=== PATIENT | male | born 1990 | race Caucasian/White ===

== ENCOUNTER 2017-01-09 07:51 | Emergency (ER) | payer SELFPAY ==
--- NOTE | 2017-01-09 08:26 | ED Physician Documentation ---
General Adult - HISTORIAN Historian: patient - HPI Stated Complaint: Deferred Chief Complaint: General Adult Additional Information: depressed w/suicide ideation. traveling fr [place] TO [place] w/2 friends. they either abandoned or got lost from him. karyn adding to his depression. he has not attempted any self harm measure has been in neuro psyche lpreviously. on no meds at this time. Onset: days ago (3-4) Timing: still present, worse Severity: moderate - ROS CONST: no problems. denies: fever, sweating, recent illness, weakness, weight loss EYES/ENT: denies: problems with vision CVS/RESP: none. denies: chest pain, shortness of breath GI/: none MS/SKIN/LYMPH: none. denies: neck pain, joint pain, leg swelling NEURO/PSYCH: depression. denies: headache, fainting, dizziness, difficulty with speech - PAST HX Past History: other (prev depression otherwise [facility]) Other History: none Surgeries/Procedures: other (tib fib) Allergies/Adverse Reactions: Allergies Allergy/AdvReac Type Severity Reaction Status Date / Time No Known Allergies Allergy Unverified 01/09/17 08:10 Home Medications: Ambulatory Orders Medication Instructions Recorded NK [NK] 01/09/17 - SOCIAL HX Smoking History: cigarettes Alcohol Use: none Drug Use: none - FAMILY HX Family History: No - VITAL SIGNS Vital Signs: Vital Signs Temp Pulse Resp BP Pulse Ox 98.1 F 88 16 145/91 99 01/09/17 07:55 01/09/17 07:55 01/09/17 07:55 01/09/17 07:55 01/09/17 07:55 - REVIEWED ASSESSMENTS Nursing Assessment Reviewed: Yes Vitals Reviewed: Yes ED Results Lab/Radiology - Orders Orders: ED Orders Category Date Time Status ACETAMINOPHEN LEVEL Stat Lab 01/09/17 08:10 Received CBC/PLATELET/DIFF Routine Lab 01/09/17 08:10 Received CMP Routine Lab 01/09/17 08:10 Received DRUG SCREEN URINE MEDICAL ONLY Routine Lab 01/09/17 08:10 Received ETHANOL MEDICAL USE ONLY Stat Lab 01/09/17 08:10 Received URINALYSIS Routine Lab 01/09/17 08:10 Received General Adult Physical Exam - PHYSICAL EXAM GENERAL APPEARANCE: mild distress EENT: eye inspection normal NECK: normal inspection, thyroid normal, supple RESPIRATORY: no resp distress, chest non-tender, breath sounds normal CVS: reg rate & rhythm ABDOMEN: soft, non-tender BACK: normal inspection SKIN: warm/dry, normal color. No: cyanosis, diaphoresis, jaundice EXTREMITIES: non-tender, normal range of motion, no evidence of injury NEURO: oriented X3. No: mood/affect nml (depressed deameanor) Discharge Clincal Impression: depression, substance abuse Home Medications: Ambulatory Orders NK [NK] 01/09/17 Comments: pt reports no longer suicidal - just want a place to stay. rec go to police for possible placement. we dko not have social services analyst at this time. Condition: Good Disposition: 01 HOME, SELF-CARE Decision to Admit: NO Decision Time: 10:03
[2017-01-09 08:34] LABS: BASOPHILS % 0.7 (0.0-1.5); EOSINOPHILS % 2.8 % (0.0-6.8); MEAN CORPUSCULAR HEMOGLOBIN 29.4 pg (28.0-34.0); MEAN CORPUSCULAR VOLUME 84.4 fl (80.0-100.0); MONOCYTES % 5.3 % (0.0-11.0); NEUTROPHILS # 6.5 # k/uL (1.4-7.7)
[2017-01-09 08:35] LABS: APPEARANCE,URINE Clear (CLEAR); COLOR,URINE Yellow (YELLOW); OCCULT BLOOD,URINE Negative (NEGATIVE); PH URINE 7.5 (5.0 - 8.0); UROBILINOGEN URINE 0.2 Eu (0.2-1.0)
[2017-01-09 08:40] LABS: AMPHETAMINE NEGATIVE ng/mL (<1000); BARBITURATES NEGATIVE ng/mL (<300); CANNABINOIDS NEGATIVE ng/mL (<50); COCAINE NEGATIVE ng/mL (<150); METHAMPHETAMINE NON NEGATIVE ng/mL (<1000); METHYLENEDIOXYMETHAMPHETAMINE NEGATIVE ng/mL (<500)
[2017-01-09 08:43] LABS: eGFR (African) > 60; eGFR (Non-African) > 60
[2017-01-09 10:21] VITALS: BP 110/68
== END 2017-01-09 10:20 | disposition home or self-care (01) ==
LOC: ED 07:51
DX: F32.9 Major depressive disorder, single episode, unspecified (principal); F19.10 Other psychoactive substance abuse, uncomplicated
CPT/HCPCS: 80053; 80304; 80320; 80377; 81002; 85025; 99283; G0477; G0480; G0481